=== PATIENT | female | born 1965 | race Two or more races ===

== ENCOUNTER 2018-09-23 06:02 | Inpatient (IN) | payer OTHER ==
[~2018-09-23] VITALS: Ht 170.2 cm; Wt 65.8 kg
[~2018-09-23 06:02] MED LIST: KETO10TA2 PO; ORPH100T PO
[2018-09-23] MEDS ORDERED: ZANTAC (06:33)
[2018-09-23] MEDS ORDERED: [UNRECOGNIZED DRUG - OTHER] (06:34)
[2018-09-23] MEDS ORDERED: GAS X (06:35)
[2018-09-26] MEDS ORDERED: LEVSIN/SL0.125 MG SL (15:33)
[2018-09-26] MEDS ORDERED: OMEPRAZOLE40 MG PO (15:33)
[2018-09-26] MEDS ORDERED: RANITIDINE HCL150 M1 (15:34)
[2018-09-26] MEDS ORDERED: CARAFATE1 GM (15:36)
[2018-09-26] MEDS ORDERED: GAS-X125 MG (15:37)
[2018-09-30] MEDS ORDERED: LEVSIN/SL0.125 MG SL (08:26)
[2018-09-30] MEDS ORDERED: ULTRACET PO (08:26)
[2018-09-30] MEDS ORDERED: PEPCID AC20 MG PO (08:26)
== END 2018-09-30 13:32 | disposition home or self-care (01) | DRG 417 ==
LOC: ER 06:02 → SURG 10:30 → SURH 10:30 → SURG 09-25 15:55
PROVIDERS: Surgery; ADMIT Student in an Organized Health Care Education/Training Program
PROC: BF37ZZZ Magnetic Resonance Imaging (MRI) of Pancreas (ICD-10-PCS; 2018-09-23)
PROC: BW40ZZZ Ultrasonography of Abdomen (ICD-10-PCS; 2018-09-23)
PROC: 0FC98ZZ Extirpation of Matter from Common Bile Duct, Via Natural or Artificial Opening Endoscopic (ICD-10-PCS; 2018-09-27)
PROC: 02HV33Z Insertion of Infusion Device into Superior Vena Cava, Percutaneous Approach (ICD-10-PCS; 2018-09-27)
PROC: BF03YZZ Plain Radiography of Gallbladder and Bile Ducts using Other Contrast (ICD-10-PCS; 2018-09-29)
PROC: 0FT44ZZ Resection of Gallbladder, Percutaneous Endoscopic Approach (ICD-10-PCS; principal; 2018-09-29 12:00)
DX: K80.70 Calculus of gallbladder and bile duct without cholecystitis without obstruction (principal); K85.10 Biliary acute pancreatitis without necrosis or infection; B37.89 Other sites of candidiasis; K92.1 Melena; E03.8 Other specified hypothyroidism